=== PATIENT | female | born 1995 | race Caucasian/White ===

== ENCOUNTER → 2021-04-13 07:53 | Outpatient (BNVA) | payer BC, SELFPAY | PROVIDERS: Family Provider Family Medicine; PCP Family Medicine; Visit Provider Obstetrics & Gynecology | DX: Z11.3 Encounter for screening for infections with a predominantly sexual mode of transmission (principal); Z30.9 Encounter for contraceptive management, unspecified | CPT/HCPCS: 81025; 87491; 87591 ==

== ENCOUNTER 2025-09-08 08:52 | Oncology outpatient (recurring) (ONCR) | payer BC, SELFPAY | END 2025-09-16 23:59 | disposition home or self-care (01) | PROVIDERS: PCP Family Medicine; Visit Provider Family Medicine | DX: Z34.90 Encounter for supervision of normal pregnancy, unspecified, unspecified trimester (principal); Z79.899 Other long term (current) drug therapy | CPT/HCPCS: 96372; J2790 ==